=== PATIENT | female | born 1975 | race Caucasian/White ===

== ENCOUNTER 2018-04-11 08:55 | Observation (INO) | payer OTHER ==
[~2018-04-11] VITALS: Ht 156 cm; Wt 96.6 kg
[~2018-04-11 08:55] MED LIST: DSS100 PO; FERR-89 PO; IBUP-2070 PO; PERCT PO; PREN1TAB80 PO
[2018-04-11 09:27] VITALS: BP 116/64
[2018-04-11 10:31] LABS: HEMOGLOBIN A1C 6.3 % (4.5-6.2)
== END 2018-04-11 10:55 | disposition home or self-care (01) ==
LOC: 4S 09:05
PROVIDERS: ADMIT Obstetrics & Gynecology; ATTEND Obstetrics & Gynecology
DX: O09.523 Supervision of elderly multigravida, third trimester (principal); Z3A.35 35 weeks gestation of pregnancy
CPT/HCPCS: 36415; 76811; 81002; 82947; 83036; G0378

== ENCOUNTER 2018-04-15 07:58 | Observation (INO) | payer OTHER ==
[~2018-04-15] VITALS: Ht 167.6 cm; Wt 97.5 kg
[2018-04-15 08:25] VITALS: BP 106/59
[2018-04-15 09:19] LABS: GLUCOMETER DEV NAME(LOC) 4S.; GLUCOSE,POINT OF CARE 139 MG/DL (70-110)
== END 2018-04-15 08:45 | disposition home or self-care (01) ==
LOC: 4S 07:58
PROVIDERS: ADMIT Obstetrics & Gynecology; ATTEND Obstetrics & Gynecology
DX: O09.523 Supervision of elderly multigravida, third trimester (principal); Z3A.36 36 weeks gestation of pregnancy
CPT/HCPCS: 81002; 82962; G0378

== ENCOUNTER 2018-04-18 07:55 | Observation (INO) | payer OTHER ==
[~2018-04-18] VITALS: Ht 156 cm; Wt 97.1 kg
[2018-04-18 08:18] VITALS: BP 121/60
[2018-04-18 08:59] LABS: GLUCOMETER DEV NAME(LOC) 4S.; GLUCOSE,POINT OF CARE 133 MG/DL (70-110)
== END 2018-04-18 09:00 | disposition home or self-care (01) ==
LOC: 4S 07:55
PROVIDERS: ADMIT Obstetrics & Gynecology; ATTEND Obstetrics & Gynecology
DX: O24.419 Gestational diabetes mellitus in pregnancy, unspecified control (principal); O09.523 Supervision of elderly multigravida, third trimester; Z3A.36 36 weeks gestation of pregnancy
CPT/HCPCS: 81002; 82962; G0378

== ENCOUNTER 2018-04-22 07:25 | Observation (INO) | payer OTHER ==
[~2018-04-22] VITALS: Ht 160 cm; Wt 96.6 kg
[2018-04-22 07:45] VITALS: BP 116/66
[2018-04-22] MEDS ORDERED: GLYB2.5 PO (08:52)
[2018-04-22 12:08] LABS: GLUCOMETER DEV NAME(LOC) 4S.; GLUCOSE,POINT OF CARE 159 MG/DL (70-110)
== END 2018-04-22 08:25 | disposition home or self-care (01) ==
LOC: 4S 07:25
PROVIDERS: ADMIT Obstetrics & Gynecology; ATTEND Obstetrics & Gynecology
DX: O24.419 Gestational diabetes mellitus in pregnancy, unspecified control (principal); O09.523 Supervision of elderly multigravida, third trimester; Z3A.37 37 weeks gestation of pregnancy
CPT/HCPCS: 82962; G0378

== ENCOUNTER 2018-04-24 18:50 | Observation (INO) | payer OTHER ==
[~2018-04-24] VITALS: Ht 167.6 cm; Wt 96.2 kg
[~2018-04-24 18:50] MED LIST changes: +GLYB2.5 PO
[2018-04-24 20:20] VITALS: BP 131/73
[2018-04-24 21:04] LABS: BASOPHILS % (AUTO) 0.4 % (0.0-2.0); EOSINOPHILS % (AUTO) 0.5 % (1.0-6.0); HEMATOCRIT 35.8 % (36-46); HEMOGLOBIN 12.2 g/dL (12.0-16.0); LYMPHOCYTES # (AUTO) 2.8 K/uL (1.0-4.8); LYMPHOCYTES % (AUTO) 20.6 % (22.0-44.0); MEAN CORPUSCULAR HEMOGLOBIN 30.1 pg (26.0-34.0); MEAN CORPUSCULAR VOLUME 88 fL (80-100); MONOCYTES # (AUTO) 0.7 K/uL (0.1-1.0); MONOCYTES % (AUTO) 5.4 % (2.0-9.0); NEUTROPHILS # (AUTO) 9.8 K/uL (1.8-7.7); NEUTROPHILS % (AUTO) 73.1 % (40.0-70.0); PLATELET COUNT (AUTO) 241 K/uL (150-450); RED BLOOD CELL COUNT(AUTO) 4.05 MIL/uL (4.00-5.20); RED CELL DISTRIBUTION WIDTH 14.6 % (11.5-14.5)
[2018-04-24 21:20] LABS: ANION GAP 11 mmol/L (8-16); CALCIUM, TOTAL 8.5 mg/dL (8.8-10.5); CARBON DIOXIDE 25 mmol/L (22-29); CHLORIDE 100 mmol/L (98-107); CREATININE 0.49 mg/dL (0.60-1.30); GLOMERULAR FILTR. RATE CALC > 60 mL/min (>60); GLUCOSE,RANDOM 88 mg/dL (70-110); POTASSIUM 3.3 mmol/L (3.5-5.1); SODIUM SERUM 136 mmol/L (136-145); UREA NITROGEN, BLOOD 7 mg/dL (7-18)
[2018-04-24 21:23] LABS: ALANINE AMINOTRANSFERASE 13 U/L (12-78); ALBUMIN 2.5 g/dL (3.4-5.0); ALKALINE PHOSPHATASE 153 U/L (46-116); ASPARTATE AMINOTRANSFERASE 19 U/L (15-37); BILIRUBIN,TOTAL 0.4 mg/dL (0.1-1.0); TOTAL PROTEIN, SERUM 7.6 g/dL (6.4-8.2); URIC ACID 4.2 mg/dL (2.6-7.2)
[2018-04-24 21:38] LABS: HEMOGLOBIN A1C 6.4 % (4.5-6.2)
== END 2018-04-24 22:15 | disposition home or self-care (01) ==
LOC: 4S 18:50
PROVIDERS: ADMIT Obstetrics & Gynecology; ATTEND Obstetrics & Gynecology
DX: O26.893 Other specified pregnancy related conditions, third trimester (principal); R03.0 Elevated blood-pressure reading, without diagnosis of hypertension; R10.30 Lower abdominal pain, unspecified; O24.415 Gestational diabetes mellitus in pregnancy, controlled by oral hypoglycemic drugs; Z3A.37 37 weeks gestation of pregnancy
CPT/HCPCS: 36415; 80053; 83036; 84550; 85025; G0378

== ENCOUNTER 2018-05-02 05:45 | Inpatient (IN) | payer OTHER ==
[~2018-05-02] VITALS: Ht 160 cm; Wt 96.6 kg
[2018-05-02] MEDS ORDERED: RINGERS SOLUTION,LACTATED 1,000 ML IV ONE ×2 (05:54→07:07)
[2018-05-02] MEDS ORDERED: CITRIC ACID/SODIUM CITRATE 30 ML SOLUTION UDCUP PO ONE (06:00)
[2018-05-02] MEDS ORDERED: METOCLOPRAMIDE HCL 5 MG/ML 2 ML VIAL IVP ONE (06:00)
[2018-05-02 06:34] LABS: BASOPHILS % (AUTO) 0.4 % (0.0-2.0); EOSINOPHILS % (AUTO) 0.8 % (1.0-6.0); HEMATOCRIT 34.7 % (36-46); LYMPHOCYTES # (AUTO) 2.6 K/uL (1.0-4.8); LYMPHOCYTES % (AUTO) 23.6 % (22.0-44.0); MEAN CORPUSCULAR HEMOGLOBIN 30.9 pg (26.0-34.0); MEAN CORPUSCULAR HGB CONC 34.6 G/dL (31.0-37.0); MEAN CORPUSCULAR VOLUME 89 fL (80-100); MONOCYTES # (AUTO) 0.6 K/uL (0.1-1.0); MONOCYTES % (AUTO) 5.8 % (2.0-9.0); NEUTROPHILS # (AUTO) 7.6 K/uL (1.8-7.7); NEUTROPHILS % (AUTO) 69.4 % (40.0-70.0); PLATELET COUNT (AUTO) 213 K/uL (150-450); RED BLOOD CELL COUNT(AUTO) 3.88 MIL/uL (4.00-5.20)
[2018-05-02 06:42] VITALS: BP 125/64
[2018-05-02] MEDS ORDERED: BUPIVACAINE HCL/DEX-WATER/PF 0.75% 2 ML AMP ONE (07:07)
[2018-05-02] MEDS ORDERED: SODIUM CHLORIDE 0.9% 1,000 ML IV ONE (07:07)
[2018-05-02] MEDS ORDERED: GLYB2.5T5 PO (07:27)
[2018-05-02 07:28] LABS: GLUCOMETER DEV NAME(LOC) 4S.; GLUCOSE,POINT OF CARE 93 MG/DL (70-110)
[2018-05-02] MEDS ORDERED: HYDROmorphone 2 MG/ML SYRINGE IVP PRN (08:15)
[2018-05-02] MEDS ORDERED: MEPERIDINE-PF 25 MG/ML VIAL IVP PRN (08:15)
[2018-05-02] MEDS ORDERED: FentaNYL CITRATE-PF 100 MCG/2 ML VIAL IVP PRN ×2 (08:15→10:00)
[2018-05-02] MEDS ORDERED: GUM MASTIC/STORAX/MSAL/ALCOHOL LIQUID 0.67 ML VIAL TP ONE (08:24)
[2018-05-02] MEDS ORDERED: OXYTOCIN 30 UNITS/LACT RINGERS 500 ML IV ONE (09:49)
[2018-05-02] MEDS ORDERED: LANOLIN 7 GM OINTMENT TP PRN (10:00)
[2018-05-02] MEDS ORDERED: ONDANSETRON HCL 4 MG/2 ML VIAL IVP PRN (10:00)
[2018-05-02] MEDS ORDERED: MORPHINE SULFATE 10 MG/ML SYRINGE IVP PRN (10:00)
[2018-05-02] MEDS ORDERED: OxyCODONE HCL/ACETAMINOPHEN 5-325 MG TABLET PO PRN ×2 (10:00)
[2018-05-02] MEDS ORDERED: DiphenhydrAMINE HCL 50 MG/ML VIAL IVP PRN (10:00)
[2018-05-02] MEDS ORDERED: NALBUPHINE HCL 10 MG/ML VIAL IVP PRN ×2 (10:00)
[2018-05-02] MEDS ORDERED: NALOXONE HCL 0.4 MG/ML VIAL IVP PRN (10:00)
[2018-05-02 13:44] LABS: GLUCOMETER DEV NAME(LOC) 4S.; GLUCOSE,POINT OF CARE 97 MG/DL (70-110)
[2018-05-02 14:59] LABS: GLUCOMETER DEV NAME(LOC) 4S.; GLUCOSE,POINT OF CARE 119 MG/DL (70-110)
[2018-05-02] MEDS: ACETAMINOPHEN 1000 MG/ISO-OSM 100 ML IV SCH ×2 (15:00→23:15)
[2018-05-02] MEDS: KETOROLAC TROMETHAMINE 30 MG/ML VIAL IVP SCH ×2 (16:14→22:50)
[2018-05-02] MEDS: RINGERS SOLUTION,LACTATED 1,000 ML IV SCH ×2 (17:12→23:47)
[2018-05-02 19:14] LABS: GLUCOMETER DEV NAME(LOC) 4S.; GLUCOSE,POINT OF CARE 156 MG/DL (70-110)
[2018-05-02] MEDS ORDERED: OXYGEN THERAPY IH SCH ×3 (20:00)
[2018-05-02] MEDS: MAGNESIUM HYDROXIDE SUSPENSION 30 ML UDCUP PO SCH (21:00)
[2018-05-03] MEDS ORDERED: ONDANSETRON HCL 4 MG/2 ML VIAL IVP ONE (05:20)
[2018-05-03] MEDS ORDERED: OXYTOCIN 10 UNITS/ML VIAL IM ONE (05:20)
[2018-05-03] MEDS ORDERED: KETOROLAC TROMETHAMINE 60 MG/2 ML VIAL IM ONE (05:20)
[2018-05-03] MEDS ORDERED: GLYCOPYRROLATE 0.2 MG/ML VIAL IM ONE (05:20)
[2018-05-03] MEDS ORDERED: 0.9% SODIUM CHLORIDE 10 ML VIAL IVP ONE (05:20)
[2018-05-03] MEDS ORDERED: MORPHINE SULFATE/PF 0.5 MG/ML 10 ML AMP IVP ONE (05:20)
[2018-05-03] MEDS ORDERED: FentaNYL CITRATE-PF 100 MCG/2 ML VIAL IVP ONE (05:20)
[2018-05-03] MEDS ORDERED: EPHEDrine SULFATE 50 MG/ML VIAL IM ONE (05:20)
[2018-05-03 06:39] LABS: BASOPHILS % (AUTO) 0.5 % (0.0-2.0); EOSINOPHILS % (AUTO) 0.7 % (1.0-6.0); HEMATOCRIT 31.5 % (36-46); HEMOGLOBIN 10.8 g/dL (12.0-16.0); LYMPHOCYTES # (AUTO) 1.7 K/uL (1.0-4.8); LYMPHOCYTES % (AUTO) 14.6 % (22.0-44.0); MEAN CORPUSCULAR HEMOGLOBIN 30.5 pg (26.0-34.0); MEAN CORPUSCULAR HGB CONC 34.1 G/dL (31.0-37.0); MEAN CORPUSCULAR VOLUME 89 fL (80-100); MONOCYTES # (AUTO) 0.7 K/uL (0.1-1.0); MONOCYTES % (AUTO) 6.4 % (2.0-9.0); NEUTROPHILS # (AUTO) 8.8 K/uL (1.8-7.7); NEUTROPHILS % (AUTO) 77.8 % (40.0-70.0); PLATELET COUNT (AUTO)-OB 202 K/uL (150-450); RED BLOOD CELL COUNT(AUTO) 3.53 MIL/uL (4.00-5.20); RED CELL DISTRIBUTION WIDTH 14.9 % (11.5-14.5)
[2018-05-03 06:44] LABS: GLUCOMETER DEV NAME(LOC) 4S.; GLUCOSE,POINT OF CARE 94 MG/DL (70-110)
[2018-05-03] MEDS: MAGNESIUM HYDROXIDE SUSPENSION 30 ML UDCUP PO SCH (10:48)
[2018-05-03] MEDS: IBUPROFEN 800 MG TABLET PO PRN ×2 (15:26→21:41)
[2018-05-04] MEDS: IBUPROFEN 800 MG TABLET PO PRN (05:25)
[2018-05-04 05:49] LABS: GLUCOMETER DEV NAME(LOC) 4S.; GLUCOSE,POINT OF CARE 76 MG/DL (70-110)
== END 2018-05-04 13:55 | disposition home or self-care (01) | DRG 540 ==
LOC: 4S 05:45 → PREOBSVTOIN 05-25 06:09
PROVIDERS: ADMIT Obstetrics & Gynecology; ATTEND Obstetrics & Gynecology
PROC: 10D00Z1 Extraction of Products of Conception, Low, Open Approach (ICD-10-PCS; principal; 2018-05-02)
DX: O34.211 Maternal care for low transverse scar from previous cesarean delivery (principal); O24.429 Gestational diabetes mellitus in childbirth, unspecified control; Z37.0 Single live birth; Z3A.38 38 weeks gestation of pregnancy
CPT/HCPCS: 83036; 86850; 86900; 86901; 87081; J0131; J0690; J1885; J2274; J2405; J2590; J2765; J3010; J3490; J7030; J7120